=== PATIENT | female | born 2000 | race Caucasian/White ===

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

== ENCOUNTER 2021-03-02 11:23 | Outpatient (REF) | payer OTHER, SELFPAY ==
[2021-03-04 10:59] LABS: COVID-19 RT-PCR UVMMC Result Negative (Negative)
== END 2021-03-02 11:24 | disposition home or self-care (01) ==
LOC: NCHCN 11:23
PROVIDERS: PCP Internal Medicine; Visit Provider Nurse Practitioner Family
DX: Z20.822 Contact with and (suspected) exposure to COVID-19 (principal)
CPT/HCPCS: U0003

== ENCOUNTER 2022-12-19 11:05 | Outpatient (REF) | payer SELFPAY ==
--- OUTSIDE RECORDS SUMMARY | 2022-12-19 11:07 | XMS_ITS | Continuity of Care Document ---
Author Name Unknown Organization [facility] Address [address] [place] [address] Encounter [facility] NBR [id number] Date(s): 03/10/22 - 03/10/22 [facility] [address] [place] [address]- [place] Discharge Disposition: Home or Self Care Allergies, Adverse Reactions, Alerts No Known Allergies Assessment and Plan Future Appointments Medications ibuprofen 0 Refill(s) Start Date: 02/23/22 Status: Ordered Tylenol 0 Refill(s) Start Date: 02/23/22 Status: Ordered Social History Social History Type Response Tobacco Never tobacco user T obacco Use:. Sex
--- OUTSIDE RECORDS SUMMARY | 2022-12-19 11:07 | XMS_ITS | Continuity of Care Document ---
Author Name Unknown Organization [facility] Address [address] [place] [address] Encounter [facility] NBR [id number] Date(s): 04/14/22 - 04/14/22 [facility] [address] [place], [place] [address] Encounter Diagnosis Strain of left shoulder(Discharge Diagnosis) - 04/14/22 Discharge Disposition: Home or Self Care Attending Physician: Sandi Jimenez APRN Allergies, Adverse Reactions, Alerts No Known Allergies Medications ibuprofen 0 Refill(s) Start Date: 02/23/22 Status: Ordered Tylenol 0 Refill(s) Start Date: 02/23/22 Status: Ordered Problem List No Known Problems Vital Signs Most recent to oldest [Reference Range]: 1 Peripheral Pulse Rate [60-100 bpm] 96 bp m (04/14/22 1:59 PM) Blood Pressure [90-140/60-90 mmHg] 101/6 9mmHg (04/14/22 1:59 PM) Social History Social History Type Response Tobacco Never tobacco user T obacco Use:. Sex Physician Outpatient Note * Sandi Jimenez APRN: PERFORM Event Display: Office Clinic Note Physician Authored Date: [id number] NIC LI :2000 Age:21 years Sex:Female Visit Date:04/14/2022 Chief Complaint WC follow up. Pt reports improvement in right shoulder pain. History of Present Illness Patient is a 21 old female who presents for recheck of a work-related injury to the left shoulder.?? Injury was initially back and??February where she reports she strained her shoulder lifting a gallon jugs of maple syrup.?? Physical Exam Vitals & Measurements HR:??96??(Peripheral)?? BP:??101/69?? SpO2:??99%?? Pain Score:??4?? Left??arm and shoulder exhibit no tenderness with palpation, range of motion??is intact, positive strength,?? no pain to??resistance Assessment/Plan 1.??Strain of left shoulder??S46.912A Physical exam is normal, cleared for work,??no modification needed?See scanned document Problem List/Past Medical History Ongoing No chronic problems Historical No qualifying data Medications ibuprofen Tylenol Allergies No Known Allergies Social History Electronic Cigarette/Vaping Electronic Cigarette Use: Use, within last 90 days. Tobacco Never tobacco user Tobacco Use:. Electronically Signed on 04/14/22 08:03 PM Sandi Jimenez APRN
== END 2022-12-19 11:06 | disposition home or self-care (01) ==
LOC: NCHCN 11:05
PROVIDERS: PCP Internal Medicine; Visit Provider Family Medicine
DX: J02.9 Acute pharyngitis, unspecified (principal)
CPT/HCPCS: 87070

== ENCOUNTER 2025-01-22 16:12 | Outpatient (REF) | payer OTHER, SELFPAY ==
[2025-01-22 21:14] LABS: Glucose Negative (Negative)
[2025-01-22 21:39] LABS: C & S Indicated? Yes; RBC 0-2 HPF (0-2); WBC 20-50 HPF (0-5)
[2025-01-22 21:44] LABS: Abs Immature Grans 0.03 10^3/uL (0.0-0.06); HCT 40.3 % (36.0-46.0); HGB 13.2 g/dL (11.2-15.7); Immature Grans % 0.4 %; MCH 30.2 pg (27.0-33.0); MCHC 32.8 % (32.0-36.0); MCV 92 fL (80-95); MPV 10.8 fL (8.0-11.0); Platelet Count 329 10^3/uL (130-400); RBC 4.37 10^6/uL (3.93-5.22); RDW 12.2 % (11.7-14.6); RDW-SD 41.4 fL; WBC 8.04 10^3/uL (4.4-10.8)
[2025-01-22 21:57] LABS: ALT 22 U/L (14-59); AST 13 U/L (15-37); Albumin 4.1 g/dL (3.4-5.0); Alkaline Phosphatase 71 U/L (46-116); Anion Gap 12.2 mmol/L (3-11); BUN 10 mg/dL (7-18); Bilirubin, Total 0.5 mg/dL (0.2-1.0); CO2 24.8 mmol/L (21.0-32.0); Calcium 9.2 mg/dL (8.5-10.1); Chloride 103 mmol/L (98-107); Estimated GFR 135.07 (mL/min/1.73m2); Glucose 74 mg/dL (74-106); Potassium 4.3 mmol/L (3.5-5.1); Sodium 140 mmol/L (136-145); Total Protein 7.5 g/dL (6.4-8.2)
== END 2025-01-22 16:13 | disposition home or self-care (01) ==
LOC: LBN 16:12
PROVIDERS: PCP Internal Medicine; Visit Provider Nurse Practitioner Family
DX: N39.0 Urinary tract infection, site not specified (principal); R30.0 Dysuria; R35.0 Frequency of micturition
CPT/HCPCS: 80053; 87077; 81003; 81015; 85025; 87086; 87186; 87480; 87510; 87660

== ENCOUNTER 2025-02-11 13:50 | Outpatient (REF) | payer OTHER, SELFPAY ==
[2025-02-11 20:49] LABS: Glucose Negative (Negative)
== END 2025-02-11 13:51 | disposition home or self-care (01) ==
LOC: NCHCN 13:50
PROVIDERS: PCP Family Medicine; Visit Provider Family Medicine
DX: N39.0 Urinary tract infection, site not specified (principal)
CPT/HCPCS: 81003